=== PATIENT | male | born 1995 | race Caucasian/White ===

== ENCOUNTER 2016-04-21 16:50 | Emergency (ER) | payer OTHER ==
[~2016-04-21] VITALS: Wt 68.0 kg
--- NOTE | 2016-04-21 19:58 | ERD ---
ER Documentation Chief Complaint Date/Time DATE: 04/21/16 TIME: 19:53 Chief Complaint abd pain, nausea, delacruz, fatigue, bodyaches HPI Patient is a 20-year-old male here with mother who presents to the ED with multiple chronic complaints. He states that he has had fatigue, body aches for 1 year on and off. He also complains of ear pain on and off for the last year as well as cold sweats on and off for the last year. He states that he also has had bad breath. He is very concerned about his bad breath. He states that he has not seen a primary care for his symptoms. He denies any fever, chills, nausea, vomiting or diarrhea. He denies abdominal pain. He denies leg pain or swelling or recent travel or recent surgeries. He denies chest pain, shortness of breath or difficulty breathing. He denies headache or dizziness ROS All systems reviewed and are negative except as per history of present illness. PMhx/Soc Medical and Surgical Hx: pt denies Medical Hx, pt denies Surgical Hx History of Surgery: No Anesthesia Reaction: No Hx Neurological Disorder: No Hx Respiratory Disorders: No Hx Cardiac Disorders: No Hx Psychiatric Problems: No Hx Miscellaneous Medical Probl: No Hx Alcohol Use: No Hx Substance Use: No Hx Tobacco Use: No Smoking Status: Never smoker FmHx Family History: No coronary disease, No diabetes, No other Physical Exam Vitals Vital Signs Date Time Temp Pulse Resp B/P Pulse Ox O2 Delivery O2 Flow Rate FiO2 04/21/16 16:52 98.2 84 20 123/58 96 Physical Exam GENERAL: Well-developed, well-nourished male. Appears in no acute distress. HEAD: Normocephalic, atraumatic. EYES: Pupils are equally reactive bilaterally. EOMs grossly intact. No conjunctival erythema. ENT: Moist mucous membranes. No uvula deviation. No kissing tonsils. No exudates. NECK: Supple. No lymphadenopathy or thyromegaly. No meningismus. negative kernig. negative brudinski. LUNG: Clear to auscultation bilaterally. No rhonchi, wheezing, rales or coarse breath sounds. HEART: Regular rate and rhythm. No murmurs, rubs or gallops. ABDOMEN: No scars, ecchymosis or rashes noted. Soft, nontender, and nondistended. Positive bowel sounds in all four quadrants. No rebound tenderness , no guarding. (-) McBurneys point tenderness. No CVA tenderness. BACK: No midline tenderness. Extremities: Equal pulses bilaterally. No peripheral clubbing, cyanosis or edema. No unilateral leg swelling. NEUROLOGIC: Alert and oriented. Moving all four extremities. 5/5 strength in all extremities. Normal speech. Steady gait. SKIN: Normal color. Warm and dry. No rashes or lesions. Capillary refill < 2 seconds Procedures/MDM ER COURSE: I kept the patient and/or family informed of laboratory and diagnostic imaging results throughout the emergency room course. MEDICAL DECISION MAKING: This is a 20-year-old male who presents with multiple chronic complaints. Vital signs were reviewed. Patient is afebrile. Patient is not hypoxic. Patient is not toxic or ill-appearing. Patient examination is within normal limits. He has no focal tenderness on his abdomen is lung examination is within normal limits. I explained to the patient that he needs to follow-up with his primary care regarding his multiple complaints that have been going on for the last year. I offered to do a Monospot test in the ED however patient refused and was in a little to leave to go to his class. He states that he does not have a primary care and would like information regarding this. It seemed that the most concerned that he had here in the ED was his "bad breath." No further imaging studies or blood work is needed at this time as patient examination is within normal limits. Low suspicion for pneumonia, PE, pneumothorax, ACS, epiglottitis, obstruction, TB, pertussis, meningitis, sepsis, meningitis, strep pharyngitis, appendicitis, acute abdomen DISCHARGE: At this time, patient is stable for discharge and outpatient management with no new complaints during the ER course. Patient was sent home with a note for work. Patient will be discharged home with instructions to recheck for new or worsening symptoms such as fever, nausea, weakness, LOC and to follow up with primary care in the next 1-2 days. Patient was advised to return to the ER for any new or worsening symptoms. Plan was discussed and patient and/or family understands and agrees. Home instructions were given. Departure Diagnosis: Primary Impression: Multiple complaints Additional Impression: Bad breath Condition: Stable Patient Instructions: Mononucleosis Referrals: COMM[facility]ITY CLINICS YOU HAVE RECEIVED A MEDICAL SCREENING EXAM AND THE RESULTS INDICATE THAT YOU DO NOT HAVE A CONDITION THAT REQUIRES URGENT TREATMENT IN THE EMERGENCY DEPARTMENT. FURTHER EVALUATION AND TREATMENT OF YOUR CONDITION CAN WAIT UNTIL YOU ARE SEEN IN YOUR DOCTORS OFFICE WITHIN THE NEXT 1-2 DAYS. IT IS YOUR RESPONSIBILITY TO MAKE AN APPOINTMENT FOR FOLOW-UP CARE. IF YOU HAVE A PRIMARY DOCTOR --you should call your primary doctor and schedule an appointment IF YOU DO NOT HAVE A PRIMARY DOCTOR YOU CAN CALL OUR PHYSICIAN REFERRAL HOTLINE AT IF YOU CAN NOT AFFORD TO SEE A PHYSICIAN YOU CAN CHOSE FROM THE FOLLOWING [facility] [address] [employer] [facility]. [facility] [address] [facility]. [facility] [address] [facility] [address] [facility] [facility] [address] [facility]. [facility]. [address] Additional Instructions: Call your primary care doctor TOMORROW for an appointment during the next 1-2 days.See the doctor sooner or return here if your condition worsens before your appointment time. ANIBAL BARTON PA-C Apr 21, 2016 19:58
== END 2016-04-21 18:58 | disposition home or self-care (01) ==
LOC: FTE 16:50
DX: R53.83 Other fatigue (principal); M79.1 Myalgia; H92.09 Otalgia, unspecified ear; R19.6 Halitosis
CPT/HCPCS: 99282